=== PATIENT | female | born 1955 | race Caucasian/White ===

== ENCOUNTER 2017-08-09 07:02 | Inpatient (IN) | payer MEDICAID ==
[~2017-08-09] VITALS: Ht 157.5 cm; Wt 64.4 kg
[~2017-08-09 07:02] MED LIST: LACTATED RINGERS 1,000 ML IV SCH
[2017-08-09 09:12] LABS: CLARITY URINE CLEAR (CLEAR); COLOR URINE YELLOW (YELLOW); KETONES URINE NEGATIVE (NEGATIVE); LEUKOCYTE ESTERASE URINE NEGATIVE (NEGATIVE); NITRITE URINE NEGATIVE (NEGATIVE); OCCULT BLOOD URINE NEGATIVE (NEGATIVE); PH URINE 6.5 (4.5-8.0); PROTEIN URINE NEGATIVE (NEGATIVE); SPECIFIC GRAVITY URINE 1.015 (1.005-1.030); UROBILINOGEN URINE 0.2 E.U./dL (0.2-1.0)
[2017-08-09] MEDS ORDERED: CHOL100053 PO (10:31)
[2017-08-09] MEDS ORDERED: ACET-2853 PO (10:31)
[2017-08-09] MEDS ORDERED: BENA10TA3 PO (10:31)
[2017-08-09] MEDS ORDERED: SIMV20TA6 PO (10:31)
[2017-08-09] MEDS ORDERED: OMEP20CA10 PO (10:31)
[2017-08-09] MEDS ORDERED: METHYLENE BLUE 50 MG/10 ML AMP IV ONE (11:09)
[2017-08-09] MEDS ORDERED: MORPHINE SULFATE/PF 1MG/ML 10ML AMP ONE (11:09)
[2017-08-09] MEDS ORDERED: BUPIVACAINE HCL/EPINEPHRINE/PF 0.5%/0.0005 10ML ONE (11:10)
[2017-08-09] MEDS ORDERED: NORMAL SALINE 0.9% 10 ML SYR ONE (11:10)
[2017-08-09] MEDS ORDERED: BACITRACIN 50,000 UNITS/VIAL ONE (11:10)
[2017-08-09] MEDS ORDERED: FENTANYL CITRATE/PF 50MCG/ML 2ML VIAL ONE (13:44)
[2017-08-09] MEDS ORDERED: ROCURONIUM BROMIDE 10MG/ML VIAL 5ML IV ONE (13:44)
[2017-08-09] MEDS ORDERED: CEFAZOLIN SODIUM 1000MG/VIAL ONE (13:45)
[2017-08-09] MEDS ORDERED: SUCCINYLCHOLINE CHLORIDE 200MG/10ML VIAL IV ONE (13:45)
[2017-08-09] MEDS ORDERED: EPHEDRINE SULFATE 50MG/ML VIAL ONE (13:45)
[2017-08-09] MEDS ORDERED: DEXAMETHASONE 4MG/ML 1ML VIAL ONE (13:45)
[2017-08-09] MEDS ORDERED: GLYCOPYRROLATE 0.2 MG/ML 2ML VIAL ONE (13:45)
[2017-08-09] MEDS ORDERED: NEOSTIGMINE METHYLSULFATE 1MG/ML 10 ML VIAL ONE (13:45)
[2017-08-09] MEDS ORDERED: LIDOCAINE HCL/PF 1% 10 MG/ML 5ML VIAL ONE (13:45)
[2017-08-09] MEDS ORDERED: MIDAZOLAM HCL 2 MG/2 ML VIAL ONE (13:45)
[2017-08-09] MEDS ORDERED: PROPOFOL 200MG/20ML VIAL IV ONE ×2 (13:45→16:28)
[2017-08-09] MEDS ORDERED: ONDANSETRON HCL 4MG/2ML VIAL ONE (13:46)
[2017-08-09] MEDS ORDERED: PHENYLEPHRINE HCL 10 MG/ML 1ML (IV VIAL) IV ONE (13:46)
[2017-08-09] MEDS ORDERED: EPINEPHRINE 1:1000 1 MG/ML AMP ONE (13:54)
[2017-08-09] MEDS ORDERED: ROPIVACAINE HCL 10MG/ML 20 ML VIAL EPI ONE (13:54)
[2017-08-09] MEDS ORDERED: TRANEXAMIC ACID 1,000 MG in SODIUM CHLORIDE 0.9% 100 ML IV NR (14:15)
[2017-08-09] MEDS ORDERED: ONDANSETRON HCL 4MG/2ML VIAL IV PRN (17:30)
[2017-08-09] MEDS ORDERED: MAGNESIUM HYDROXIDE 400MG/5ML 30ML UDC PO PRN (17:30)
[2017-08-09] MEDS ORDERED: ONDANSETRON INJ IV PRN (18:15)
[2017-08-09] MEDS ORDERED: MEPERIDINE HCL/PF 25MG/ML CPJ IV PRN (18:15)
[2017-08-09] MEDS ORDERED: HYDROMORPHONE HCL/PF 2MG/ML CPJ IV PRN (18:15)
[2017-08-09] MEDS ORDERED: MORPHINE PCA 50MG/50ML IV PRN (18:15)
[2017-08-09] MEDS ORDERED: NALOXONE INJ IV PRN (18:15)
[2017-08-09] MEDS ORDERED: DIPHENHYDRAMINE INJ IV PRN (18:15)
[2017-08-09 20:00] VITALS: BP 140/63
[2017-08-09 21:00] VITALS: BP 140/63
[2017-08-09] MEDS: CEFAZOLIN 2,000 MG in DEXT 5% WATER 100 ML IV SCH (22:42)
[2017-08-10] VITALS: BP 117/55
[2017-08-10 04:00] VITALS: BP 127/53
[2017-08-10] MEDS: CEFAZOLIN 2,000 MG in DEXT 5% WATER 100 ML IV SCH (06:07)
[2017-08-10 08:00] VITALS: BP 123/53
[2017-08-10 09:50] LABS: BASOPHILS % 0.2 % (0.0-2.0); HEMATOCRIT. 32.9 % (36.0-48.0); HEMOGLOBIN. 10.9 g/dL (12.0-16.0); LYMPHOCYTES % 14.4 % (20.0-50.0); MEAN CORPUSCULAR HEMOGLOBIN 29.3 pg (28.0-32.0); MEAN CORPUSCULAR VOLUME 88.1 fL (81.0-99.0); MEAN PLATELET VOLUME 9.3 fl (7.4-10.4); MONOCYTES % 11.2 % (2.0-8.0); NEUTROPHILS % 74.2 % (40.0-76.0); PLATELET 235 x1000/uL (130-400); RED BLOOD CELL COUNT 3.73 mill/uL (4.2-5.4); RED CELL DISTRIBUTION WIDTH 14.1 % (11.6-14.6)
[2017-08-10 10:22] LABS: CHLORIDE 102 mEq/L (98-107)
[2017-08-10] MEDS: DOCUSATE SODIUM 100MG CAPSULE PO SCH ×2 (10:58→17:51)
[2017-08-10] MEDS: FERROUS SULFATE 325MG TABLET PO SCH ×3 (10:58→17:51)
[2017-08-10] MEDS: HYDROCODONE/ACETAMINOPHEN 5/325MG TABLET PO PRN ×3 (10:59→22:05)
[2017-08-10 12:00] VITALS: BP 127/49
[2017-08-10 16:00] VITALS: BP 123/48
[2017-08-10] MEDS: ENOXAPARIN 40MG/0.4ML SYR SUBCUT SCH (17:52)
[2017-08-10] MEDS ORDERED: PIPERACILLIN/TAZ 3.375G PREMIX 50 ML IV SCH (20:00)
[2017-08-10] MEDS: OXYCODONE HCL/ACETAMINOPHEN 5/325MG TABLET PO SCH (20:00)
[2017-08-10 20:36] VITALS: BP 116/41
[2017-08-10] MEDS ORDERED: VANCOMYCIN 1250MG in DEXTROSE 5% WATER 250ML IV NR (21:00)
[2017-08-11] VITALS (7 sets, daily range): BP systolic 108–134; BP diastolic 45–77
[2017-08-11] MEDS: OXYCODONE HCL/ACETAMINOPHEN 5/325MG TABLET PO SCH ×2 (02:48→08:40)
[2017-08-11] MEDS ORDERED: PIPERACILLIN/TAZ 3.375G PREMIX 50 ML IV SCH (06:00)
[2017-08-11 07:23] LABS: BASOPHILS % 0.2 % (0.0-2.0); EOSINOPHILS % 0.1 % (0.0-5.0); HEMATOCRIT. 29.1 % (36.0-48.0); HEMOGLOBIN. 9.8 g/dL (12.0-16.0); LYMPHOCYTES % 20.9 % (20.0-50.0); MEAN CORPUSCULAR HEMOGLOBIN 29.8 pg (28.0-32.0); MEAN CORPUSCULAR VOLUME 88.3 fL (81.0-99.0); MEAN PLATELET VOLUME 9.3 fl (7.4-10.4); MONOCYTES % 12.2 % (2.0-8.0); NEUTROPHILS % 66.6 % (40.0-76.0); PLATELET 221 x1000/uL (130-400)
[2017-08-11 08:24] LABS: CHLORIDE 102 mEq/L (98-107)
[2017-08-11] MEDS: FERROUS SULFATE 325MG TABLET PO SCH ×3 (08:40→17:50)
[2017-08-11] MEDS: DOCUSATE SODIUM 100MG CAPSULE PO SCH ×2 (08:40→17:59)
[2017-08-11] MEDS: ACETAMINOPHEN 325MG TABLET PO PRN ×2 (09:01→17:59)
[2017-08-11] MEDS: HYDROCODONE/ACETAMINOPHEN 5/325MG TABLET PO PRN ×2 (13:21→18:00)
[2017-08-11] MEDS ORDERED: VANCOMYCIN 1 G PREMIX 200 ML IV SCH (15:00)
[2017-08-11] MEDS: ENOXAPARIN 40MG/0.4ML SYR SUBCUT SCH (17:33)
[2017-08-12] VITALS: BP 99/55
[2017-08-12 04:00] VITALS: BP 143/63
[2017-08-12 08:00] VITALS: BP 137/65
[2017-08-12] MEDS ORDERED: ENOXAPARIN 30MG/0.3ML SYR SUBCUT SCH (09:00)
[2017-08-12] MEDS: DOCUSATE SODIUM 100MG CAPSULE PO SCH (09:12)
[2017-08-12] MEDS: FERROUS SULFATE 325MG TABLET PO SCH ×2 (09:12→13:15)
[2017-08-12 12:00] VITALS: BP 137/62
[2017-08-12] MEDS: HYDROCODONE/ACETAMINOPHEN 5/325MG TABLET PO PRN (13:15)
[2017-08-12 16:00] VITALS: BP 122/72
[2017-08-12] MEDS ORDERED: FERR325T23 PO (17:49)
== END 2017-08-12 18:32 | disposition home or self-care (01) | DRG 302 ==
LOC: ORIP 07:02 → 6EST 20:38
PROVIDERS: ADMIT Internal Medicine; ATTEND Internal Medicine
PROC: 0SRC0J9 Replacement of Right Knee Joint with Synthetic Substitute, Cemented, Open Approach (ICD-10-PCS; principal; 2017-08-09 11:30)
DX: M17.0 Bilateral primary osteoarthritis of knee (principal); I10 Essential (primary) hypertension; D53.9 Nutritional anemia, unspecified; D72.829 Elevated white blood cell count, unspecified; E78.5 Hyperlipidemia, unspecified; R50.9 Fever, unspecified
CPT/HCPCS: 36415; 71046; 73560; 80048; 81003; 83735; 85025; 86850; 86900; 87040; 87086; 88305; 88311; 93005; 93970; 97110; 97116; 97161; 97162; 97165; 97530; 97535; A4216; C1713; C1776; J0171; J0330; J0690; J1100; J1650; J2175; J2250; J2270; J2274; J2370; J2405; J2543; J2704; J2710; J2795; J3010; J3370; J3490; J7030; J7050; J7060; J7120; L1830; Q9968